=== PATIENT | female | born 1995 | race Caucasian/White ===

== ENCOUNTER 2022-09-09 21:08 | Emergency (ER) | payer OTHER ==
[~2022-09-09] VITALS: Ht 167.6 cm; Wt 109.4 kg
[2022-09-09] MEDS ORDERED: ETON68IM SC (21:17)
[2022-09-09] MEDS ORDERED: ACET325C5 PO (21:20)
[2022-09-10 00:26] VITALS: BP 161/97; TEMP 97.9; O2SAT 100
[2022-09-12] MEDS ORDERED: IBUP-1022 PO (22:43)
== END 2022-09-10 00:29 | disposition home or self-care (01) ==
LOC: M ED 21:08
DX: S92.355A Nondisplaced fracture of fifth metatarsal bone, left foot, initial encounter for closed fracture (principal); X50.1XXA Overexertion from prolonged static or awkward postures, initial encounter; Y92.009 Unspecified place in unspecified non-institutional (private) residence as the place of occurrence of the external cause; Z79.3 Long term (current) use of hormonal contraceptives

== ENCOUNTER → 2022-10-02 | Outpatient (CLI) | payer OTHER ==
[~2022-10-02] MED LIST: ACET325C5 PO; ETON68IM SC; IBUP-1022 PO
== END ==
LOC: M SOG 10:35
PROVIDERS: ATTEND Physician Assistant
DX: S92.355A Nondisplaced fracture of fifth metatarsal bone, left foot, initial encounter for closed fracture (principal); Y93.9 Activity, unspecified; Y92.9 Unspecified place or not applicable

== ENCOUNTER → 2022-11-06 | Outpatient (CLI) | payer OTHER ==
[~2022-11-06] MED LIST changes: +AMOX875T2 PO; +HYDR-3713 PO
== END ==
LOC: M SOG 08:39
PROVIDERS: ATTEND Physician Assistant
DX: S92.355S Nondisplaced fracture of fifth metatarsal bone, left foot, sequela (principal); X58.XXXS Exposure to other specified factors, sequela

== ENCOUNTER → 2022-12-07 | Outpatient (CLI) | payer OTHER, MEDICAID | LOC: M SOG 07:55 | PROVIDERS: ATTEND Physician Assistant | DX: S92.355S Nondisplaced fracture of fifth metatarsal bone, left foot, sequela (principal); Z53.9 Procedure and treatment not carried out, unspecified reason ==

== ENCOUNTER → 2022-12-28 | Outpatient (CLI) | payer OTHER, MEDICAID | LOC: M SOG 15:17 | PROVIDERS: ATTEND Physician Assistant | DX: S92.355S Nondisplaced fracture of fifth metatarsal bone, left foot, sequela (principal) ==

== ENCOUNTER 2023-04-11 11:35 | Emergency (ER) | payer MEDICAID, OTHER ==
[~2023-04-11] VITALS: Ht 167.6 cm; Wt 104.5 kg
[2023-04-11 13:45] LABS: BASO % 0.5 % (0.0-1.0); EOS # 0.1 10^3/uL (0.0-0.5); EOS % 0.6 % (0.0-3.0); HEMATOCRIT 41.5 % (36.0-47.0); HEMOGLOBIN 12.9 g/dl (12.0-15.5); LYMPH # 1.8 10^3/uL (1.5-5.0); LYMPH % 21.7 % (24.0-44.0); MEAN CORPUSCULAR HEMOGLOBIN 25.3 pg (27.0-33.0); MEAN CORPUSCULAR HGB CONC 31.1 g/dl (32.0-36.5); MEAN CORPUSCULAR VOLUME 81.4 fl (80.0-96.0); MONO # 0.5 10^3/uL (0.0-0.8); MONO % 6.4 % (2.0-8.0); NEUTROPHILS # 5.8 10^3/uL (1.5-8.5); NEUTROPHILS % 70.6 % (36.0-66.0); PLATELET COUNT, AUTOMATED 281 10^3/uL (150-450); WHITE BLOOD COUNT 8.2 10^3/uL (4.0-10.0)
[2023-04-11 14:11] LABS: BLOOD UREA NITROGEN 15 MG/DL (9-23); CARBON DIOXIDE LEVEL 26 MMOL/L (20-31); CHLORIDE LEVEL 106 MMOL/L (98-107); CREATININE FOR GFR 0.66 MG/DL (0.55-1.30); GLOMERULAR FILTRATION RATE > 60.0 (>60); GLUCOSE, FASTING 109 MG/DL (60-100); POTASSIUM SERUM 4.1 MMOL/L (3.5-5.1); SODIUM LEVEL 138 MMOL/L (136-145)
[2023-04-11 15:02] VITALS: BP 140/90; TEMP 97.5; O2SAT 100
== END 2023-04-11 15:07 | disposition home or self-care (01) ==
LOC: M ED 11:35
DX: Z48.00 Encounter for change or removal of nonsurgical wound dressing (principal); Z79.2 Long term (current) use of antibiotics; Z79.1 Long term (current) use of non-steroidal anti-inflammatories (NSAID); Z79.899 Other long term (current) drug therapy

== ENCOUNTER 2023-06-01 11:51 | Day surgery (SDC) | payer OTHER ==
[~2023-06-01] VITALS: Ht 167.6 cm; Wt 101.1 kg
[~2023-06-01 11:51] MED LIST changes: +NS 1,000 ML IV ONE; +PROBCAP14 PO
[2023-06-01] MEDS ORDERED: propofoL 200 MG/20 ML VIAL As Ordered ONE (13:31)
[2023-06-01 13:53] VITALS: TEMP 97.8
[2023-06-01 14:15] VITALS: BP 121/71; O2SAT 100
== END 2023-06-01 14:23 | disposition home or self-care (01) ==
LOC: M OPP 11:51
PROVIDERS: ATTEND Internal Medicine Gastroenterology
DX: K64.8 Other hemorrhoids (principal); K64.4 Residual hemorrhoidal skin tags; K63.89 Other specified diseases of intestine; R19.7 Diarrhea, unspecified; K62.5 Hemorrhage of anus and rectum